=== PATIENT | female | born 1985 | race Caucasian/White ===

== ENCOUNTER 2016-10-10 23:13 | Emergency (ER) | payer MEDICARE, MEDICAID ==
[~2016-10-10] VITALS: Ht 162.6 cm; Wt 120.0 kg
[~2016-10-10 23:13] MED LIST: HYDR-3535 PO; LAMO100 PO; LEXA20TA PO; METH10TA PO; METO25TA6 PO; QUET400XR PO; SOMA350T PO; VALT1TAB26 PO
[2016-10-11 00:06] VITALS: BP 138/78; PULSE 72; RESP 18; TEMP 98.8; O2SAT 97
[2016-10-11] MEDS ORDERED: LEXA20TA PO (00:17)
[2016-10-11] MEDS ORDERED: METH10TA PO ×2 (00:17)
[2016-10-11] MEDS ORDERED: SOMA350T PO (00:17)
[2016-10-11] MEDS ORDERED: LAMO100 PO (00:17)
[2016-10-11] MEDS ORDERED: HYDR-3583 PO (00:17)
[2016-10-11] MEDS ORDERED: TOPR25TA PO (00:17)
[2016-10-11 00:55] VITALS: O2SAT 98
--- NOTE | 2016-10-11 01:09 | RADRPT ---
EXAM DATE/TIME: 10/11/2016 00:38 [facility] COMPARISON: No previous studies available for comparison. INDICATIONS : Palpitations. MEDICAL HISTORY : None. SURGICAL HISTORY : None. ENCOUNTER: Initial ACUITY: 1 day PAIN SCORE: 0/10 LOCATION: Bilateral chest FINDINGS: A single view of the chest demonstrates the lungs to be symmetrically aerated without evidence of mas s, infiltrate or effusion. The cardiomediastinal contours are unremarkable. Osseous structures are intact. CONCLUSION: No acute disease. Ferdinand Vazquez MD on October 11, 2016 at 1:08 Board Certified Radiologist. This report was verified electronically.
[2016-10-11] MEDS ORDERED: SODIUM CHLOR 0.9% 1000 ML INJ 1,000 ML IV ONE (01:15)
[2016-10-11] MEDS ORDERED: ONDANSETRON HCL 4 MG/2 ML VIAL IV ONE ×2 (01:15→04:15)
[2016-10-11 01:18] LABS: AUTOMATED NEUTROPHIL # 8.6 TH/MM3 (1.8-7.7); BASOPHIL # 0.1 TH/MM3 (0-0.2); BASOPHIL % 0.9 % (0.0-2.0); EOSINOPHIL # 0.2 TH/MM3 (0-0.4); EOSINOPHIL % 1.5 % (0.0-4.0); HEMATOCRIT 41.5 % (35.0-46.0); LYMPH % 22.8 % (9.0-44.0); LYMPHOCYTE # 2.8 TH/MM3 (1.0-4.8); MEAN CELL VOLUME 77.1 FL (80.0-100.0); MEAN CORPUSCULAR HEMOGLOBIN 24.6 PG (27.0-34.0); MEAN CORPUSCULAR HGB CONC 31.8 % (32.0-36.0); MONO % 4.1 % (0.0-8.0); NEUT % 70.7 % (16.0-70.0); PLATELET COUNT 277 TH/MM3 (150-450); RED BLOOD COUNT 5.37 MIL/MM3 (4.00-5.30); RED CELL DISTRIBUTION WIDTH 16.9 % (11.6-17.2); WHITE BLOOD COUNT 12.1 TH/MM3 (4.0-11.0)
[2016-10-11 01:26] LABS: HEMO FLAGS AUTO DIFF
[2016-10-11 01:39] LABS: ALT (GPT) 22 U/L (10-53); AMYLASE 34 U/L (25-115); ANION GAP 5 MEQ/L (5-15); AST (GOT) 17 U/L (15-37); BICARBONATE 28.9 MEQ/L (21.0-32.0); BLOOD UREA NITROGEN 9 MG/DL (7-18); CHLORIDE 102 MEQ/L (98-107); GLOMERULAR FILTRATION RATE 81 ML/MIN (>89); POTASSIUM 4.3 MEQ/L (3.5-5.1); SODIUM (NA) 136 MEQ/L (136-145)
[2016-10-11 01:46] LABS: OVALOCYTES 1+ (NORMAL); SCAN/DIFF AUTO DIFF CONFIRMED
[2016-10-11 01:48] LABS: ALKALINE PHOSPHATASE 104 U/L (45-117); TOTAL BILIRUBIN ADULT 0.2 MG/DL (0.2-1.0)
[2016-10-11 01:56] LABS: CREATINE KINASE 78 U/L (26-192)
[2016-10-11] MEDS ORDERED: PROM2SUP RECTAL (02:13)
--- NOTE | 2016-10-11 02:14 | PD ---
HPI Chief Complaint: Anxiety Time Seen by Provider: 00:37 Travel History International Travel<30 days: No Contact w/Intl Traveler<30days: No Traveled to known affect area: No History of Present Illness HPI The patient is 31year old female who presents to the [facility] emergency department with a history of reportedly sleeping and yesterday as her child did not need to go to school. She reports that she is on chronic pain medicine that includes methadone and hydrocodone for chronic pain related to systemic lupus erythematosus. The patient reports that she's been on the medication for years. She reports that she is normally on 30 mg in the morning and 20 mg in the evening. As she woke up later than usual she took her morning dose of methadone at 2 PM. She then took her usual evening dose at the usual time. Shortly after she began to feel dizzy, nauseated and vomited 1, and experienced difficulty concentrating. The patient became concerned that she took her medication too close together and was experiencing side effects related to this. She is also on Soma and hydrocodone for breakthrough pain, however she denies taking any at this this evening. The patient reports that she has a reinforcer and a primary care physician in [place]. She reports that she is moving to the area. She reports that she is in the process of being worked up by a reinforcer for an irregular heartbeat. The patient denies any history of fever, cough, congestion, neck pain, chest pain, shortness of breath, abdominal pain, vomiting, diarrhea, urinary symptoms, or neurologic symptoms. LMP: 3 and 1/2 weeks ago [facility] Past Medical History Narrative Medical The patient's past medical history is significant for chronic pain related to systemic lupus erythematosus since she was a teenager, history of bipolar disorder, acid reflux, green headaches, peptic ulcer disease, endometriosis, history of cryptococcal meningitis. Bipolar Disorder: Yes Anxiety: Yes Depression: Yes Diminished Hearing: No GERD: Yes Immune Disorder: Yes (SYSTEMIC LUPUS) Medical other: Yes (CRYPTOCOCCAL MENINGITIS) Reproductive: Yes (ENDOMETRIOSIS) Immunizations Current: Yes Migraines: Yes Ulcer: Yes Tetanus Vaccination: < 5 Years Influenza Vaccination: Yes ?: Not LMP: 3 1/2 WEEKS AGO Past Surgical History Narrative Surgical The patient's past surgical history is significant for cholecystectomy. Cholecystectomy: Yes Social History Alcohol Use: No Tobacco Use: Yes (1/2 ppd) Substance Use: No Allergies-Medications (Allergen,Severity, Reaction): Coded Allergies: Augmentin (Verified Allergy, Severe, 10/11/16) Baclofen (Verified Allergy, Severe, 10/11/16) Vancomycin (Verified Allergy, Severe, 10/11/16) Reported Meds & Prescriptions Reported Meds & Active Scripts Active Phenergan Supp (Promethazine HCl) 12.5 Mg Supp 12.5 Mg RECTAL Q6H PRN Reported Toprol XL (Metoprolol Succinate) 25 Mg Tab 25 Mg PO DAILY Methadone (Methadone HCl) 10 Mg Tab 20 Mg PO HS Methadone (Methadone HCl) 10 Mg Tab 30 Mg PO DAILY@0600 Lamictal (Lamotrigine) 100 Mg Tab 100 Mg PO DAILY Hydrocodone-Acetaminophen 10-325 mg Tab 1 Tab PO BID PRN Lexapro (Escitalopram Oxalate) 20 Mg Tab 20 Mg PO DAILY Soma (Carisoprodol) 350 Mg Tab 350 Mg PO BID PRN Review of Systems Except as stated in HPI: all other systems reviewed are Neg General / Constitutional: No: Fever Eyes: No: Visual changes HENT: Positive: Lightheadedness, No: Headaches Cardiovascular: Positive: Palpitations, No: Chest Pain or Discomfort Respiratory: No: Shortness of Breath Gastrointestinal: No: Abdominal Pain Genitourinary: No: Dysuria Musculoskeletal: No: Pain Skin: No Rash Neurologic: Positive: Change in Mentation, No: Weakness, Focal Abnormalities, Slurred Speech, Sensory Disturbance Psychiatric: No: Depression Endocrine: No: Polydipsia Hematologic/Lymphatic: No: Easy Bruising Physical Exam Narrative General: The patient is a well-developed well-nourished female in no acute distress. Head and Neck exam: Head is normocephalic atraumatic. Eyes: Pupils are equal round and reactive to light. Nose: Midline septum with pink mucous membranes Mouth: Dentition unremarkable. Moist mucus membranes. Posterior oropharynx is not erythematous. No tonsillar hypertrophy. Uvula midline. Airway patent. Neck: No palpable lymphadenopathy. No nuchal rigidity. No thyromegaly. Cardiovascular: Regular rate and rhythm without murmurs, gallops, or rubs. No pulse deficit to the extremities and simultaneous auscultation and palpation of her radial artery. Lungs: Clear to auscultation bilaterally. No wheezes, rhonchi, or rales. Abdomen: Soft, without tenderness to palpation in all 4 quadrants of the abdomen. No guarding, rebound, or rigidity. Normal bowel sounds are audible. Extremities: No clubbing, cyanosis, or edema. 2+ pulses in all 4 extremities. No calf tenderness on palpation. Back: No spinous process tenderness to palpation. No costovertebral angle tenderness to palpation. Neurologic Exam: Grossly nonfocal. She is alert and oriented to person, place, time, and situation. Skin Exam: No rash noted. Intact skin that is warm and dry. Data Data Last Documented VS Vital Signs Date Time Temp Pulse Resp B/P Pulse Ox O2 Delivery O2 Flow Rate FiO2 10/11/16 00:55 98 Nasal Cannula 2 10/11/16 00:06 98.8 72 18 138/78 Orders Electrocardiogram (10/11/16 00:37) Complete Blood Count With Diff (10/11/16 00:37) Comprehensive Metabolic Panel (10/11/16 00:37) Creatine Kinase (Cpk) (10/11/16 00:37) Ckmb (Isoenzyme) Profile (10/11/16 00:37) Troponin I (10/11/16 00:37) Amylase (10/11/16 00:37) Urinalysis - C+S If Indicated (10/11/16 00:37) D-Dimer (10/11/16 00:37) Drug Screen, Random Urine (10/11/16 00:37) Thyroid Stimulating Hormone (10/11/16 00:37) Chest, Single Ap (10/11/16 00:37) Iv Access Insert/Monitor (10/11/16 00:37) Ecg Monitoring (10/11/16 00:37) Oximetry (10/11/16 00:37) Ed Urine Pregnancytest Poc (10/11/16 00:37) Sodium Chlor 0.9% 1000 Ml Inj (Ns 1000 M (10/11/16 01:15) Ondansetron Inj (Zofran Inj) (10/11/16 01:15) Ct Pulmonary Angiogram (10/11/16 02:14) Iohexol 350 Inj (Omnipaque 350 Inj) (10/11/16 03:02) Labs Laboratory Tests Test 10/11/16 10/11/16 01:00 01:50 White Blood Count 12.1 TH/MM3 Red Blood Count 5.37 MIL/MM3 Hemoglobin 13.2 GM/DL Hematocrit 41.5 % Mean Corpuscular Volume 77.1 FL Mean Corpuscular Hemoglobin 24.6 PG Mean Corpuscular Hemoglobin 31.8 % Concent Red Cell Distribution Width 16.9 % Platelet Count 277 TH/MM3 Mean Platelet Volume 8.5 FL Neutrophils (%) (Auto) 70.7 % Lymphocytes (%) (Auto) 22.8 % Monocytes (%) (Auto) 4.1 % Eosinophils (%) (Auto) 1.5 % Basophils (%) (Auto) 0.9 % Neutrophils # (Auto) 8.6 TH/MM3 Lymphocytes # (Auto) 2.8 TH/MM3 Monocytes # (Auto) 0.5 TH/MM3 Eosinophils # (Auto) 0.2 TH/MM3 Basophils # (Auto) 0.1 TH/MM3 CBC Comment AUTO DIFF Differential Comment AUTO DIFF CONFIRMED Ovalocytes 1+ D-Dimer Quantitative (PE/DVT) 0.62 MG/L FEU Sodium Level 136 MEQ/L Potassium Level 4.3 MEQ/L Chloride Level 102 MEQ/L Carbon Dioxide Level 28.9 MEQ/L Anion Gap 5 MEQ/L Blood Urea Nitrogen 9 MG/DL Creatinine 0.83 MG/DL Estimat Glomerular Filtration 81 ML/MIN Rate Random Glucose 89 MG/DL Calcium Level 8.9 MG/DL Total Bilirubin 0.2 MG/DL Aspartate Amino Transf 17 U/L (AST/SGOT) Alanine Aminotransferase 22 U/L (ALT/SGPT) Alkaline Phosphatase 104 U/L Total Creatine Kinase 78 U/L Troponin I LESS THAN 0.02 NG/ML Total Protein 7.8 GM/DL Albumin 3.3 GM/DL Amylase Level 34 U/L Thyroid Stimulating Hormone 1.010 uIU/ML 3rd Gen Urine Color YELLOW Urine Turbidity HAZY Urine pH 5.5 Urine Specific [place] 1.024 Urine Protein NEG mg/dL Urine Glucose (UA) NEG mg/dL Urine Ketones NEG mg/dL Urine Occult Blood NEG Urine Nitrite NEG Urine Bilirubin NEG Urine Urobilinogen LESS THAN 2.0 MG/DL Urine Leukocyte Esterase NEG Urine RBC 1 /hpf Urine WBC 1 /hpf Urine Squamous Epithelial 2 /hpf Cells Urine Bacteria RARE /hpf Urine Mucus FEW /lpf Microscopic Urinalysis Comment CULT NOT INDICATED Urine Opiates Screen NEG Urine Barbiturates Screen NEG Urine Amphetamines Screen NEG Urine Benzodiazepines Screen POS Urine Cocaine Screen NEG Urine Cannabinoids Screen NEG MDM Medical Decision Making Medical Screen Exam Complete: Yes Emergency Medical Condition: Yes Medical Record Reviewed: Yes Interpretation(s) Last Impressions Chest X-Ray 10/11/16 0037 Signed Impressions: Service Date/Time: Tuesday, October 11, 2016 00:38 - CONCLUSION: No acute disease. Ferdinand Vazquez MD Differential Diagnosis Medication side effect, versus electrolyte abnormality, versus endocrine disorder. Narrative Course During the course of the patients emergency department visit, the patients history, examination, and differential diagnosis were reviewed with the patient. The patient had IV access obtained and blood work sent for analysis. The patient was placed on a cardiac exercise physiologist with oximetry and blood pressure monitoring. An EKG was done on arrival. The patient's EKG reveals a sinus rhythm with a sinus arrhythmia, heart rate of 64, no acute ST segment changes, T waves inverted in V1. The patient was provided normal saline 1 L IV fluid bolus. The patient was given Zofran 4 mg IV 1 for nausea. The patients laboratory studies were reviewed and remarkable for a white count of 12.1, hemoglobin 13.2, platelets 277 with neutrophils 70.7, CMP is remarkable for GFR of 81, CPK 78, troponin I less than 0.02, albumin 3.3, TSH within normal limits, d-dimer is elevated at 0.62 Radiology studies were reviewed and remarkable for a chest x-ray showed no acute abnormality. CTA to rule out PE after d-dimer came back elevated showed no evidence of pulmonary embolism or infiltrate. I suspect that the patient's symptoms are related to taking her methadone dose is too close together. I recommended that she avoid all other sedating medications over the next 12 hours including Soma and hydrocodone. The patient is resting comfortably and feels better, is alert and in no distress. The patients results and examination findings were discussed with the patient. The repeat examination is unremarkable and benign. The history, exam, diagnostic testing, and current condition do not suggest any significant pathology to warrant further testing, continued ED treatment, admission, or surgical evaluation at this point. The vital signs have been stable. The patient does not have uncontrollable pain, intractable vomiting, or other significant symptoms. The patient's condition is stable and appropriate for discharge. The patient will pursue further outpatient evaluation with a primary care physician or other designated or consulting physician as indicated in the discharge instructions. The patient expressed understanding and was agreeable with this plan. Diagnosis Primary Impression: Medication side effects Qualified Code: T88.7XXA - Medication side effects, initial encounter Referrals: Primary Care Physician 2 days Patient Instructions: Acute Nausea and Vomiting (ED), General Instructions, Lightheadedness (ED) Med/Other Pt SpecificInfo: Prescription(s) given Scripts Promethazine Supp (Phenergan Supp)12.5 Mg Supp12.5 Mg RECTAL Q6H PRN (NAUSEA OR VOMITING) #3 SUPP Ref 0 Prov:Claribel Flynn MD 10/11/16 Disposition: 01 DISCHARGE HOME Condition: Stable Claribel Flynn MD Oct 11, 2016 02:14
[2016-10-11 02:20] LABS: AMPHETAMINE, URINE NEG (NEG); BARBITURATES, URINE NEG (NEG); COCAINE, URINE NEG (NEG)
[2016-10-11 02:21] LABS: BACTERIA, URINE RARE /hpf; BLOOD, URINE NEG (NEG); COMMENT (UR) CULT NOT INDICATED; CULTURE IF INDICATED CULT NOT INDICATED; GLUCOSE,URINE NEG (NEG); KETONE, URINE NEG (NEG); MUCUS URINE FEW /lpf (OCC); NITRITE,URINE NEG (NEG); PH, URINE 5.5 (5.0-8.5); SQUAMOUS EPITHELIAL CELL URINE 2 /hpf (0-5); URINE COLOR YELLOW (YELLW/STRAW)
[2016-10-11] MEDS ORDERED: IOHEXOL 350 MG/ML 10 ML VIAL (for RAD DIAG) IV ONE (03:02)
--- NOTE | 2016-10-11 04:07 | RADRPT ---
EXAM DATE/TIME: 10/11/2016 03:01 [facility] COMPARISON: No previous studies available for comparison. INDICATIONS : Elevated D-Dimer. IV CONTRAST: 72 cc Omnipaque 350 (iohexol) IV RADIATION DOSE: 27.17 CTDIvol (mGy) MEDICAL HISTORY : Gastroesophageal reflux disease. SURGICAL HISTORY : Cholecystectomy. ENCOUNTER: Initial ACUITY: 1 day PAIN SCALE: 0/10 LOCATION: chest TECHNIQUE: Volumetric scanning of the chest was performed using a pulmonary embolism protocol MIP images were re constructed. Using automated exposure control and adjustment of the mA and/or kV according to patien t size, radiation dose was kept as low as reasonably achievable to obtain optimal diagnostic quality images. FINDINGS: PULMONARY ARTERIES: No filling defects are seen in the pulmonary arteries through the segmental level. LUNGS: There is no consolidation or pneumothorax . No concerning pulmonary nodule is visualized. PLEURAE: There is no pleural thickening or pleural effusion. MEDIASTINUM: There is good visualization of the great vessels of the middle mediastinum. No evidence of mediastin al or hilar adenopathy/mass. MUSCULOSKELETAL: Within normal limits for patient age. MISCELLANEOUS: The visualized upper abdominal organs demonstrate no acute abnormality. CONCLUSION: 1. No evidence for pulmonary embolism. 2. No infiltrate seen. Ferdinand Vazquez MD on October 11, 2016 at 4:03 Board Certified Radiologist. This report was verified electronically.
--- NOTE | 2016-10-11 14:13 | EKG ---
Date Performed: 10/11/2016 Time Performed: 00:49:36 PTAGE: 31 years EKG: Sinus rhythm WITH SINUS ARRHYTHMIA LOW QRS VOLTAGE IN PRECORDIAL LEADS BORDERLINE ECG NO PREVIOUS TRACING DOCTOR: [place] Interpretating Date/Time 10/11/2016 14:05:30
== END 2016-10-11 04:48 | disposition home or self-care (01) ==
LOC: NEPC 23:13
DX: T88.7XXA Unspecified adverse effect of drug or medicament, initial encounter (principal); R42 Dizziness and giddiness; R94.31 Abnormal electrocardiogram [ECG] [EKG]; M32.9 Systemic lupus erythematosus, unspecified; G89.29 Other chronic pain; F17.200 Nicotine dependence, unspecified, uncomplicated; Z79.899 Other long term (current) drug therapy; Z86.59 Personal history of other mental and behavioral disorders; Z87.19 Personal history of other diseases of the digestive system; Z87.42 Personal history of other diseases of the female genital tract
CPT/HCPCS: 71010; 71275; 80053; 80307; 81001; 82150; 82550; 84443; 84484; 84703; 85025; 85379; 93005; 96374; 96376; 99285; J2405; J7030; Q9967

== ENCOUNTER 2017-11-11 16:41 | Emergency (ER) | payer MEDICARE, MEDICAID ==
[~2017-11-11] VITALS: Ht 162.6 cm; Wt 120.0 kg
[~2017-11-11 16:41] MED LIST changes: -HYDR-3535 PO; +HYDR-3583 PO; -METO25TA6 PO; +PROM2SUP RECTAL; -QUET400XR PO; +TOPR25TA PO; -VALT1TAB26 PO
[2017-11-11 16:45] VITALS: BP 125/87; PULSE 97; RESP 14; TEMP 98.9; O2SAT 97
--- NOTE | 2017-11-11 18:26 | RADRPT ---
EXAM DATE/TIME: 11/11/2017 17:55 [facility] COMPARISON: No previous studies available for comparison. INDICATIONS : Chest pain, cough, and shortness of breath for two weeks. MEDICAL HISTORY : Asthma. SURGICAL HISTORY : Cholecystectomy. ENCOUNTER: Initial ACUITY: 2 weeks PAIN SCORE: 6/10 LOCATION: Bilateral chest FINDINGS: A single view of the chest demonstrates the lungs to be symmetrically aerated without evidence of mas s, infiltrate or effusion. The cardiomediastinal contours are unremarkable. Osseous structures are intact. CONCLUSION: Normal examination. Yoni Sharma MD on November 11, 2017 at 18:23 Board Certified Radiologist. This report was verified electronically.
--- NOTE | 2017-11-11 18:28 | PD ---
HPI Chief Complaint: Cold / Flu Symptoms Time Seen by Provider: 17:49 Travel History International Travel<30 days: No Contact w/Intl Traveler<30days: No Traveled to known affect area: No History of Present Illness HPI 32-year-old female presents to the emergency Department with complaint of fever on and off 2 weeks, sore throat, productive cough with green sputum, and shortness of breath 2 weeks. Did feel better for 2-3 days, but then got sick again. Reports he maxilla 101.0. Thinks she had a fever yesterday. Denies chest pain, vomiting. Reports right ear pain with decreased hearing and nasal congestion. Reports intermittent wheezing. Has tried taking Mucinex for symptom management. Symptoms are mild in severity. No known aggravating or relieving factors. No known sick contacts. Primary care provider is Dr. Ventura. Allergies to Augmentin and vanco. Says she can take penicillins. History of SLE, arthritis, and gastric ulcers. Has no other medical complaints. No other modifying factors or associated signs and symptoms. PFSH Past Medical History Bipolar Disorder: Yes Anxiety: Yes Depression: Yes Diminished Hearing: No GERD: Yes Immune Disorder: Yes (SYSTEMIC LUPUS) Reproductive: Yes (ENDOMETRIOSIS) Immunizations Current: Yes Migraines: Yes Ulcer: Yes Tetanus Vaccination: < 5 Years ?: Not LMP: OCT 2016 Past Surgical History Cholecystectomy: Yes Social History Alcohol Use: No Tobacco Use: Yes (/2 ppd) Substance Use: No Allergies-Medications (Allergen,Severity, Reaction): Coded Allergies: baclofen (Unverified Allergy, Severe, 11/11/17) clavulanic acid (Unverified Allergy, Severe, 11/11/17) vancomycin (Unverified Allergy, Severe, 11/11/17) Reported Meds & Prescriptions Reported Meds & Active Scripts Active Ibuprofen 800 Mg Tab 800 Mg PO Q6HR PRN Tessalon Perles (Benzonatate) 100 Mg Cap 100 Mg PO TID PRN Amoxicillin 500 Mg Cap 500 Mg PO BID 10 Days Phenergan Supp (Promethazine HCl) 12.5 Mg Supp 12.5 Mg RECTAL Q6H PRN Reported Toprol XL (Metoprolol Succinate) 25 Mg Tab 25 Mg PO DAILY Methadone (Methadone HCl) 10 Mg Tab 20 Mg PO HS Methadone (Methadone HCl) 10 Mg Tab 30 Mg PO DAILY@0600 Lamictal (Lamotrigine) 100 Mg Tab 100 Mg PO DAILY Hydrocodone-Acetaminophen 10-325 mg Tab 1 Tab PO BID PRN Lexapro (Escitalopram Oxalate) 20 Mg Tab 20 Mg PO DAILY Soma (Carisoprodol) 350 Mg Tab 350 Mg PO BID PRN Review of Systems Except as stated in HPI: all other systems reviewed are Neg Physical Exam Narrative GENERAL: Well-nourished, well-developed female patient, in no acute distress; afebrile, nontoxic-appearing SKIN: Warm and dry. No rash. HEAD: Atraumatic. Normocephalic. EYES: Pupils equal and round. No scleral icterus. No injection or drainage. ENT: Mucosa pink and moist. No erythema or exudates. No uvular edema. No uvular , palatal, or tonsillar deviation. Airway patent. EARS: Bilateral pinnae and external canals appear within normal limits. Bilateral tympanic membranes without erythema, dullness or perforation. NECK: Trachea midline. No lymphadenopathy. CARDIOVASCULAR: Regular rate and rhythm. No murmur appreciated. RESPIRATORY: No accessory muscle use. Clear to auscultation. Breath sounds equal bilaterally. No retractions or tachypnea. GASTROINTESTINAL: Abdomen soft, non-tender, nondistended. Hepatic and splenic margins not palpable. Bowel sounds are active 4 quadrants. MUSCULOSKELETAL: No obvious deformities. No clubbing. No cyanosis. No edema. NEUROLOGICAL: Awake and alert. Oriented 3. No obvious cranial nerve deficits. Motor grossly within normal limits. Normal speech. Moves all extremities. 5/5 strength to all extremities. PSYCHIATRIC: Appropriate mood and affect; insight and judgment normal. Data Data Last Documented VS Vital Signs Date Time Temp Pulse Resp B/P (MAP) Pulse Ox O2 Delivery O2 Flow Rate FiO2 11/11/17 19:06 11/11/17 16:45 98.9 97 14 97 Orders Orders Influenzae A/B Antigen (11/11/17 17:50) Group A Rapid Strep Screen (11/11/17 17:50) Chest, Single Ap (11/11/17 17:50) Ed Discharge Order (11/11/17 19:02) MDM Medical Decision Making Medical Screen Exam Complete: Yes Emergency Medical Condition: Yes Medical Record Reviewed: Yes Differential Diagnosis Influenza, upper respiratory infection, strep pharyngitis, pneumonia Narrative Course 32-year-old female with cold/flu/sore throat symptoms 2 weeks. MAXIMUM TEMPERATURE of 101.0. Patient is afebrile and nontoxic-appearing in the ER. Physical exam is unremarkable. Influenza, rapid strep, chest x-ray ordered. 1859: Chest x-ray with no acute findings. Influenza negative. Rapid strep positive. I confirmed with the patient that she is not allergic to amoxicillin. She says she can take amoxicillin and has taken in the past. She is only allergic to clavulanic acid in the Augmentin. She is requesting Tessalon Perles. Amoxicillin and Tessalon Perles prescribed for home. Instructed patient to follow up with primary care provider. Patient verbalizes understanding and agreement with treatment plan. Patient is medically cleared and stable for discharge. Discussed reasons to return to the emergency department. Patient agrees with treatment plan. The patients vital signs are stable and the patient is stable for outpatient follow-up and treatment. Patient discharged home, stable and in no acute distress. Diagnosis Primary Impression: Strep throat [facility] Patient Instructions: General Instructions, Strep Throat (ED) Departure Forms: Tests/Procedures, Work Release Special Instructions: No work until fever free for 24 hours; fever is greater than 100.4 Additional Instructions: Take Antibiotics as prescribed and complete full course of antibiotics Throw away and change your toothbrush 24 hours after starting antibiotics Get plenty of sleep/rest Rest your voice Drink plenty of fluids to prevent dehydration Use warm saltwater gargles to soothe throat pain Use an air humidifier/turn off ceiling fans Use throat lozenges as needed for sore throat Use ibuprofen or acetaminophen as needed to relieve pain and fever Follow-up with your primary care provider within 2-4 days Return immediately to the emergency department with worsening of symptoms Med/Other Pt SpecificInfo: Prescription(s) given Scripts Ibuprofen (Ibuprofen) 800 Mg Tab 800 MG PO Q6HR Y for PAIN, #30 TAB 0 Refills Prov: America Hanson LOIN TRIMMER 11/11/17 Benzonatate (Tessalon Perles) 100 Mg Cap 100 MG PO TID Y for COUGH, #10 CAP 0 Refills Prov: America Hanson LOIN TRIMMER 11/11/17 Amoxicillin (Amoxicillin) 500 Mg Cap 500 MG PO BID for Infection for 10 Days, #20 CAP 0 Refills Prov: America HansonP 11/11/17 Disposition: 01 DISCHARGE HOME Condition: Stable America Hanson Nov 11, 2017 18:28
[2017-11-11] MEDS ORDERED: IBUP1TAB7 PO (19:01)
[2017-11-11] MEDS ORDERED: BENZ100 PO (19:01)
[2017-11-11] MEDS ORDERED: AMOX500C PO (19:01)
== END 2017-11-11 19:13 | disposition home or self-care (01) ==
LOC: NEPD 16:41
DX: J02.0 Streptococcal pharyngitis (principal); B95.0 Streptococcus, group A, as the cause of diseases classified elsewhere; K21.9 Gastro-esophageal reflux disease without esophagitis; M32.9 Systemic lupus erythematosus, unspecified; F17.210 Nicotine dependence, cigarettes, uncomplicated
CPT/HCPCS: 71045; 87804; 87880; 99284